=== PATIENT | female | born 1960 | race American Indian/Alaskan Native ===

== ENCOUNTER 2018-07-26 11:51 | Emergency (ER) | payer MEDICAID ==
[2018-07-26] MEDS ORDERED: ZOFRAN IV ONE (12:32)
[2018-07-26] MEDS ORDERED: SUBLIMAZE IV ONE (12:32)
--- NOTE | 2018-07-26 12:43 | Emergency Department Report ---
HPI - General Chief Complaint: Weakness Time Seen by Provider: 07/26/18 12:20 - HPI HPI: Room 6 The patient is a 57-year-old female presenting with chief complaint of "something is wrong with my stomach." The patient states she has had nausea and vomiting for years. The patient had an EGD performed 03/30/[address] Neves which revealed "severe erosive esophagitis, gastric antral erythema, gastric antral erosions and a hiatal hernia." GI recommended a repeat endoscopy in 8-12 weeks to check for healing of erosive esophagitis. The patient states she continues to have frequent nausea and vomiting with meals for the past 2 days she's felt weak with frequent nausea and vomiting. Patient states she's had constant mid back pain for the past 2 months. Patient denies dysuria or hematuria. When asked if she's had a fever at home the patient states she never checked her temperature. Location: Gastrointestinal system Duration: [See above] Quality: Weakness Severity: Moderate Modifying factors: [see above] Context: [see above] Mode of transportation: [not driving] ED Past Medical Hx - Past Medical History Previous Medical History?: Yes Hx GERD: Yes Hx Psychiatric Treatment: Yes (depression) Hx COPD: Yes Additional medical history: Hypercholesterolemia, hypothyroidism - Surgical History Additional Surgical History: Partial hysterectomy - Family History Family history: no significant - Social History Smoking Status: Current Every Day Smoker (2/3 pack per day) Substance Use Type: Cocaine (crack last use ~May 2018) - Medications Home Medications: Home Medications Medication Instructions Recorded Confirmed Last Taken Type Advair 250-50 Diskus 2 puff INHALATION PRN PRN 03/28/18 03/30/18 03/29/18 History AtorvaSTATin 20 mg PO DAILY 03/28/18 03/28/18 Unknown History Carbamazepine 400 mg PO DAILY 03/28/18 03/30/18 03/29/18 History FLUoxetine HCL 40 mg PO DAILY 03/28/18 03/30/18 03/29/18 History Gabapentin 300 mg PO TID 03/28/18 03/30/18 03/29/18 History Hydroxyzine HCl 50 mg PO TID 03/28/18 03/30/18 03/29/18 History Ibuprofen 800 mg PO PRN PRN 03/28/18 03/28/18 Unknown History Levothyroxine 50 mcg PO DAILY 03/28/18 03/28/18 Unknown History Lovastatin 20 mg PO DAILY 03/28/18 03/30/18 03/29/18 History Meclizine 25 mg PO TID 03/28/18 03/30/18 03/29/18 History Proventil Hfa 90 mcg INHALATION DAILY 03/28/18 03/30/18 03/29/18 History Ranitidine HCl 150 mg PO DAILY 03/28/18 03/30/18 03/29/18 History PROzac 40 mg PO DAILY 03/30/18 03/30/18 03/29/18 History SEROquel 400 mg PO DAILY 03/30/18 03/30/18 03/29/18 History TEGretol 400 mg PO DAILY 03/30/18 03/30/18 03/29/18 History Ibuprofen [Motrin] 600 mg PO Q8H PRN #20 tablet 05/12/18 Unknown Rx methOCARBAMOL [Robaxin TAB] 500 mg PO Q6H PRN #15 tablet 05/12/18 Unknown Rx HYDROcodone/APAP 5-325 [[place] 1 - 2 each PO Q6HR PRN #14 tablet 07/26/18 Unknown Rx 5/325] Metoclopramide HCl [Reglan TAB] 5 mg PO Q6H #30 tablet 07/26/18 Unknown Rx Pantoprazole [Protonix] 40 mg PO BID #30 tablet 07/26/18 Unknown Rx Promethazine [Phenergan] [address] Q6HR PRN #5 supp.rect 07/26/18 Unknown Rx ED Review of Systems ROS: Stated complaint: WEAKNESS,N/V Other details as noted in HPI Constitutional: fever (patient states she does not know) Eyes: denies: eye pain ENT: denies: throat pain Respiratory: no symptoms reported Cardiovascular: denies: chest pain Endocrine: no symptoms reported Gastrointestinal: nausea, vomiting. denies: abdominal pain Genitourinary: denies: dysuria Musculoskeletal: back pain Neurological: denies: headache Physical Exam - Physical Exam Vital Signs: Vital Signs 07/26/18 07/26/18 12:14 12:15 Temperature 99.3 F Pulse Rate 83 Blood Pressure 134/94 O2 Sat by Pulse 97 96 Oximetry Physical Exam: GENERAL: The patient is well-developed well-nourished female lying on stretcher not appearing to be in acute distress. [] HEENT: Normocephalic. Atraumatic. Extraocular motions are intact. Patient has moist mucous membranes. NECK: Supple. Trachea midline CHEST/LUNGS: Clear to auscultation. There is no respiratory distress noted. HEART/CARDIOVASCULAR: Regular. There is no tachycardia. There is no gallop rub or murmur. ABDOMEN: Abdomen is soft, nontender. Patient has normal bowel sounds. There is no abdominal distention. SKIN: There is no rash. There is no diaphoresis. NEURO: The patient is awake, alert, and oriented. The patient is cooperative. The patient has normal speech MUSCULOSKELETAL: There is no evidence of acute injury. ED Course Vital Signs 07/26/18 07/26/18 12:14 12:15 Temperature 99.3 F Pulse Rate 83 Blood Pressure 134/94 O2 Sat by Pulse 97 96 Oximetry - Consultations Consultation #1: 07/26/18 16:31 GI paged 07/26/18 16:[address] Porter Consultation #2: 07/26/18 16:45 Dr Neves paged 07/26/18 17:31 case d/w Dr Neves- Recdae giving PPI BID, reglan 5mg q6h and call office tomorrow ED Medical Decision Making - Lab Data Result diagrams: 07/26/18 12:44 07/26/18 12:44 Laboratory Tests 07/26/18 07/26/18 07/26/18 12:44 12:44 12:51 WBC 6.8 RBC 5.88 H Hgb 15.1 H Hct 46.1 H MCV 78 L MCH 26 L MCHC 33 RDW 15.1 Plt Count 300 Lymph % (Auto) 21.1 Reagan % (Auto) 4.4 Eos % (Auto) 0.9 Baso % (Auto) 1.3 Lymph # 1.4 Reagan # 0.3 Eos # 0.1 Baso # 0.1 Seg Neutrophils % 72.3 H Seg Neutrophils # 4.9 Sodium 138 Potassium 4.5 Chloride 100.2 Carbon Dioxide 27 Anion Gap 15 BUN 11 Creatinine 0.9 Estimated GFR > 60 BUN/Creatinine Ratio 12 Glucose 105 H Calcium 10.0 Total Bilirubin 0.30 AST 16 ALT 14 Alkaline Phosphatase 82 Total Creatine Kinase 80 CK-MB (CK-2) 1.3 CK-MB (CK-2) Rel Index 1.6 Troponin T < 0.010 Total Protein 7.9 Albumin 4.4 Albumin/Globulin Ratio 1.3 Amylase 273 H Lipase 40 TSH 1.110 Free T4 0.77 Urine Color Urine Turbidity Urine pH Ur Specific [place] Urine Protein Urine Glucose (UA) Urine Ketones Urine Blood Urine Nitrite Urine Bilirubin Urine Urobilinogen Ur Leukocyte Esterase Urine WBC (Auto) Urine RBC (Auto) U Epithel Cells (Auto) Hyaline Casts Urine Mucus 07/26/18 15:46 WBC RBC Hgb Hct MCV MCH MCHC RDW Plt Count Lymph % (Auto) Reagan % (Auto) Eos % (Auto) Baso % (Auto) Lymph # Reagan # Eos # Baso # Seg Neutrophils % Seg Neutrophils # Sodium Potassium Chloride Carbon Dioxide Anion Gap BUN Creatinine Estimated GFR BUN/Creatinine Ratio Glucose Calcium Total Bilirubin AST ALT Alkaline Phosphatase Total Creatine Kinase CK-MB (CK-2) CK-MB (CK-2) Rel Index Troponin T Total Protein Albumin Albumin/Globulin Ratio Amylase Lipase TSH Free T4 Urine Color Yellow Urine Turbidity Clear Urine pH 5.0 Ur Specific [place] 1.047 H Urine Protein <15 mg/dl Urine Glucose (UA) Neg Urine Ketones Neg Urine Blood Neg Urine Nitrite Neg Urine Bilirubin Neg Urine Urobilinogen < 2.0 Ur Leukocyte Esterase Neg Urine WBC (Auto) 1.0 Urine RBC (Auto) 1.0 U Epithel Cells (Auto) < 1.0 Hyaline Casts 1 Urine Mucus Few - EKG Data -: EKG Interpreted by Nc EKG shows normal: sinus rhythm Rate: normal - EKG Data When compared to previous EKG there are: previous EKG unavailable Interpretation: other (no ischemic changes seen) - Differential Diagnosis erosive esophagitis, pancreatitis, ACS, SBO, dehydration Critical care attestation.: If time is entered above; I have spent that time in minutes in the direct care of this critically ill patient, excluding procedure time. ED Disposition Clinical Impression: Nausea & vomiting, Erosive esophagitis Disposition: DC-01 TO HOME OR SELFCARE Is pt being admited?: No Does the pt Need Aspirin: No Condition: Stable Instructions: Acute Nausea and Vomiting (ED) Additional Instructions: Return to the emergency department immediately should you develop worsening symptoms, fever, inability to tolerate food or liquid or any other concerns. Prescriptions: HYDROcodone/APAP 5-325 [[place] 5/325] 1 - 2 each PO Q6HR PRN #14 tablet PRN Reason: Pain Metoclopramide HCl [Reglan TAB] 5 mg PO Q6H #30 tablet Pantoprazole [Protonix] 40 mg PO BID #30 tablet Promethazine [Phenergan] [address] Q6HR PRN #5 supp.rect PRN Reason: Vomiting Referrals: LUCY NEVES MD [Staff Physician] - 3-5 Days Time of Disposition: 17:31
[2018-07-26] MEDS ORDERED: NACL 0.9% 1000 ML 1,000 ML IV ONE (12:48)
[2018-07-26 13:04] LABS: Basophils # (Auto) 0.1 K/mm3 (0.0-0.1); Basophils % (Auto) 1.3 % (0.0-1.8); Eosinophils # (Auto) 0.1 K/mm3 (0.0-0.4); Eosinophils % (Auto) 0.9 % (0.0-4.3); Hematocrit 46.1 % (30.3-42.9); Hemoglobin 15.1 gm/dl (10.1-14.3); Lymphocytes # (Auto) 1.4 K/mm3 (1.2-5.4); Lymphocytes % (Auto) 21.1 % (13.4-35.0); Mean Corpuscular HGB Conc 33 % (30-34); Mean Corpuscular Volume 78 fl (79-97); Monocytes # (Auto) 0.3 K/mm3 (0.0-0.8); Monocytes % (Auto) 4.4 % (0.0-7.3); Platelet Count 300 K/mm3 (140-440); Red Blood Count 5.88 M/mm3 (3.65-5.03); Red Cell Distribution Width 15.1 % (13.2-15.2)
[2018-07-26 13:26] LABS: Creatine Kinase MB 1.3 ng/mL (0.0-4.0)
[2018-07-26 13:27] LABS: Alanine Aminotransferase 14 units/L (7-56); Albumin 4.4 g/dL (3.9-5); BUN/Creatinine Ratio 12; Blood Urea Nitrogen 11 mg/dL (7-17); Hemolysis Index 9
[2018-07-26 14:20] LABS: Free T4 (Free Thyroxine) 0.77 ng/dL (0.76-1.46)
--- NOTE | 2018-07-26 15:17 | Cat Scan Report ---
FINAL REPORT EXAM: CT ABDOMEN PELVIS W CON HISTORY: intractable nausea vomiting, weakness. Hx hiatal hernia w vomiting for years. Pt states she tried to have an MRI a few months ago for a spot on her liver but was unable to do the MRI. No follo w up since then. Also bilateral flank pain. TECHNIQUE: CT abdomen and pelvis performed. Images extend from diaphragm to pubic symphysis. IV co ntrast was administered. Axial images and coronal and sagittal reformatted images were obtained. PRIORS: None. FINDINGS: There is a 3.9 cm mass in the right hepatic lobe with enhancement pattern suggestive of hemangioma. 1 cm low-density lesion in the left lobe may also be a hemangioma although not definitively character ized. Other tiny low-density lesions are likely cysts. There is a moderate to large hiatal hernia. There is mild wall thickening of the stomach which may re flect gastritis. The visualized liver, spleen, pancreas, adrenal glands and kidneys demonstrate no significant abnorma lities. There is no abdominal aortic aneurysm. There is no evidence of intestinal obstruction. The appendix is normal. There is no free intraperitoneal air. The bladder is unremarkable. IMPRESSION: 3.9 cm right lobe liver lesion has appearance compatible with hemangioma. There may be an additional 1 cm hemangioma in the left hepatic lobe. Other tiny lesions are likely cy sts. Moderate to large hiatal hernia. There is diffuse mild gastric wall thickening which is concerning fo r gastritis.
[2018-07-26 16:00] LABS: Bilirubin,Urine NEG (Negative); Blood,Urine NEG (Negative); Color,Urine Yellow (Yellow); Hyaline Casts,Urine 1 /LPF; Mucus,Urine FEW /HPF; Protein,Urine <15 mg/dL mg/dL (Negative); Urobilinogen,Urine < 2.0 mg/dL (<2.0)
[2018-07-26 16:01] VITALS: BP 135/78
== END 2018-07-26 17:50 | disposition home or self-care (01) ==
LOC: ED 11:51
DX: K22.10 Ulcer of esophagus without bleeding (principal); R11.2 Nausea with vomiting, unspecified; K21.9 Gastro-esophageal reflux disease without esophagitis; F32.9 Major depressive disorder, single episode, unspecified; J44.9 Chronic obstructive pulmonary disease, unspecified; E03.9 Hypothyroidism, unspecified; F17.200 Nicotine dependence, unspecified, uncomplicated; F14.10 Cocaine abuse, uncomplicated
CPT/HCPCS: 36415; 74177; 80053; 81001; 82150; 82550; 82553; 83690; 84439; 84443; 84484; 85025; 93005; 93010; 96361; 96374; 96375; 99284; J2405; J3010; J7030; Q9967

== ENCOUNTER 2020-04-30 12:15 | Emergency (ER) | payer MEDICAID ==
[2020-04-30 13:36] LABS: Basophils # (Auto) 0.1 K/mm3 (0.0-0.1); Basophils % (Auto) 1.6 % (0.0-1.8); Eosinophils # (Auto) 0.1 K/mm3 (0.0-0.4); Eosinophils % (Auto) 1.9 % (0.0-4.3); Hematocrit 39.9 % (30.3-42.9); Hemoglobin 13.2 gm/dl (10.1-14.3); Lymphocytes # (Auto) 1.6 K/mm3 (1.2-5.4); Lymphocytes % (Auto) 41.7 % (13.4-35.0); Mean Corpuscular HGB Conc 33 % (30-34); Mean Corpuscular Volume 76 fl (79-97); Monocytes # (Auto) 0.2 K/mm3 (0.0-0.8); Monocytes % (Auto) 6.5 % (0.0-7.3); Platelet Count 210 K/mm3 (140-440); Red Blood Count 5.25 M/mm3 (3.65-5.03); Red Cell Distribution Width 18.9 % (13.2-15.2)
[2020-04-30 13:57] LABS: BUN/Creatinine Ratio 8; Blood Urea Nitrogen 6 mg/dL (7-17); Calcium 9.4 mg/dL (8.4-10.2); Hemolysis Index 3
[2020-04-30 16:00] LABS: Amphetamine Screen,Urine PRESUMPTIVE NEGATIVE; Benzodiazepines Screen,Urine PRESUMPTIVE NEGATIVE; Bilirubin,Urine NEG (Negative); Blood,Urine SM (Negative); Cannabinoid Screen,Urine PRESUMPTIVE NEGATIVE; Cocaine Screen,Urine PRESUMPTIVE POSITIVE; Color,Urine Yellow (Yellow); Hyaline Casts,Urine 1 /LPF; Methadone Screen,Urine PRESUMPTIVE NEGATIVE; Mucus,Urine 1+ /HPF; Opiate Screen,Urine PRESUMPTIVE NEGATIVE; Protein,Urine <15 mg/dL mg/dL (Negative); Urobilinogen,Urine < 2.0 mg/dL (<2.0)
--- NOTE | 2020-04-30 17:31 | Emergency Department Report ---
<CARMENJOHN - Last Filed: 04/30/20 17:26> ED Psych HPI - General Chief Complaint: Psych Stated Complaint: MH Time Seen by Provider: 04/30/20 16:57 Source: patient Mode of arrival: Ambulatory Limitations: No Limitations - History of Present Illness Initial Comments: Chief complaint: "Why are you asking me all of these questions? I am suicidal." HPI: Mrs. Pena is a 59-year-old female with history of depression, bipolar disorder, COPD, GERD, hypercholesterolemia, hypothyroidism and cocaine dependence who presents with suicidal ideation. Patient could not provide a plan to harm herself. However she informed triage nurse that she wants to run out in traffic and get hit by a car. She did not want to provide any history. She wanted to eat food provided to her. She admitted that she does not have lodging because "I smoked up all my check and the lady put me out." MD Complaint: suicidal ideation, feels depressed -: Gradual, week(s) (2 weeks) Associated Psychiatric Symptoms: depression, suicidal ideation History of same: Yes Quality: constant Improves With: none Worsens With: none Context: recent drug abuse, not taking psychiatric Associated Symptoms: denies other symptoms Treatments Prior to Arrival: none If Self Harm: has plan - Related Data Home Medications Medication Instructions Recorded Confirmed Last Taken Advair 250-50 Diskus 2 puff INHALATION PRN PRN 03/28/18 05/01/20 03/29/18 AtorvaSTATin 20 mg PO DAILY 03/28/18 05/01/20 Unknown Carbamazepine 400 mg PO DAILY 03/28/18 05/01/20 03/29/18 FLUoxetine HCL 40 mg PO DAILY 03/28/18 05/01/20 03/29/18 Gabapentin 300 mg PO TID 03/28/18 05/01/20 03/29/18 Hydroxyzine HCl 50 mg PO TID 03/28/18 05/01/20 03/29/18 Ibuprofen 800 mg PO PRN PRN 03/28/18 05/01/20 Unknown Levothyroxine 50 mcg PO DAILY 03/28/18 05/01/20 Unknown Lovastatin 20 mg PO DAILY 03/28/18 05/01/20 03/29/18 Meclizine 25 mg PO TID 03/28/18 05/01/20 03/29/18 Proventil Hfa 90 mcg INHALATION DAILY 03/28/18 05/01/20 03/29/18 Ranitidine HCl 150 mg PO DAILY 03/28/18 05/01/20 03/29/18 PROzac 40 mg PO DAILY 03/30/18 05/01/20 03/29/18 SEROquel 400 mg PO DAILY 03/30/18 05/01/20 03/29/18 TEGretol 400 mg PO DAILY 03/30/18 05/01/20 03/29/18 Previous Rx's Medication Instructions Recorded Last Taken Type Ibuprofen [Motrin] 600 mg PO Q8H PRN #20 tablet 05/12/18 Unknown Rx methOCARBAMOL [Robaxin TAB] 500 mg PO Q6H PRN #15 tablet 05/12/18 Unknown Rx HYDROcodone/APAP 5-325 [[place] 1 - 2 each PO Q6HR PRN #14 tablet 07/26/18 Unknown Rx 5/325] Metoclopramide HCl [Reglan TAB] 5 mg PO Q6H #30 tablet 07/26/18 Unknown Rx Pantoprazole [Protonix] 40 mg PO BID #30 tablet 07/26/18 Unknown Rx Promethazine [Phenergan] 25 mg [place] Q6HR PRN #5 supp.rect 07/26/18 Unknown Rx Allergies Allergy/AdvReac Type Severity Reaction Status Date / Time acetaminophen Allergy Intermediate Unknown Verified 04/30/20 12:55 codeine Allergy Intermediate Itching Verified 04/30/20 12:55 ED Review of Systems Comment: All other systems reviewed and negative Constitutional: denies: fever, malaise Respiratory: denies: cough, shortness of breath Cardiovascular: denies: chest pain Gastrointestinal: denies: abdominal pain, nausea Psychiatric: depression, suicidal thoughts ED Past Medical Hx - Past Medical History Previous Medical History?: Yes Hx GERD: Yes Hx Psychiatric Treatment: Yes (depression/ BIPOLAR) Hx COPD: Yes Additional medical history: Hypercholesterolemia, hypothyroidism - Surgical History Additional Surgical History: Partial hysterectomy - Social History Smoking Status: Current Every Day Smoker Substance Use Type: Cocaine, Other - Medications Home Medications: Home Medications Medication Instructions Recorded Confirmed Last Taken Type Advair 250-50 Diskus 2 puff INHALATION PRN PRN 03/28/18 05/01/20 03/29/18 History AtorvaSTATin 20 mg PO DAILY 03/28/18 05/01/20 Unknown History Carbamazepine 400 mg PO DAILY 03/28/18 05/01/20 03/29/18 History FLUoxetine HCL 40 mg PO DAILY 03/28/18 05/01/20 03/29/18 History Gabapentin 300 mg PO TID 03/28/18 05/01/20 03/29/18 History Hydroxyzine HCl 50 mg PO TID 03/28/18 05/01/20 03/29/18 History Ibuprofen 800 mg PO PRN PRN 03/28/18 05/01/20 Unknown History Levothyroxine 50 mcg PO DAILY 03/28/18 05/01/20 Unknown History Lovastatin 20 mg PO DAILY 03/28/18 05/01/20 03/29/18 History Meclizine 25 mg PO TID 03/28/18 05/01/20 03/29/18 History Proventil Hfa 90 mcg INHALATION DAILY 03/28/18 05/01/20 03/29/18 History Ranitidine HCl 150 mg PO DAILY 03/28/18 05/01/20 03/29/18 History PROzac 40 mg PO DAILY 03/30/18 05/01/20 03/29/18 History SEROquel 400 mg PO DAILY 03/30/18 05/01/20 03/29/18 History TEGretol 400 mg PO DAILY 03/30/18 05/01/20 03/29/18 History Ibuprofen [Motrin] 600 mg PO Q8H PRN #20 tablet 05/12/18 05/01/20 Unknown Rx methOCARBAMOL [Robaxin TAB] 500 mg PO Q6H PRN #15 tablet 05/12/18 05/01/20 Unk nown Rx HYDROcodone/APAP 5-325 [[place] 1 - 2 each PO Q6HR PRN #14 tablet 07/26/18 05/01/20 Unknown Rx 5/325] Metoclopramide HCl [Reglan TAB] 5 mg PO Q6H #30 tablet 07/26/18 05/01/20 Unknown Rx Pantoprazole [Protonix] 40 mg PO BID #30 tablet 07/26/18 05/01/20 Unknown Rx Promethazine [Phenergan] 25 mg [place] Q6HR PRN #5 supp.rect 07/26/18 05/01/20 Unknown Rx ED Physical Exam - General Limitations: No Limitations General appearance: alert, in no apparent distress - Head Head exam: Present: atraumatic, normocephalic - Eye Eye exam: Present: normal appearance - ENT ENT exam: Present: mucous membranes moist - Neck Neck exam: Present: normal inspection, full ROM - Respiratory Respiratory exam: Present: normal lung sounds bilaterally. Absent: respiratory distress, wheezes, rales, rhonchi - Cardiovascular Cardiovascular Exam: Present: regular rate, normal rhythm, normal heart sounds. Absent: systolic murmur, diastolic murmur, rubs, gallop - GI/Abdominal GI/Abdominal exam: Present: soft, normal bowel sounds. Absent: distended, tenderness, guarding, rebound - Extremities Exam Extremities exam: Present: normal inspection - Neurological Exam Neurological exam: Present: alert, oriented X3 - Psychiatric Psychiatric exam: Present: normal affect, agitated - Skin Skin exam: Present: warm, dry, intact, normal color. Absent: rash ED Medical Decision Making - Lab Data Result diagrams: 04/30/20 13:18 04/30/20 13:18 Laboratory Results - last 24 hr 04/30/20 04/30/20 04/30/20 13:18 13:18 13:18 WBC RBC Hgb Hct MCV MCH MCHC RDW Plt Count Lymph % (Auto) Jackson % (Auto) Eos % (Auto) Baso % (Auto) Lymph # (Auto) Jackson # (Auto) Eos # (Auto) Baso # (Auto) Seg Neutrophils % Seg Neutrophils # Sodium 144 Potassium 3.3 L Chloride 104.5 Carbon Dioxide 30 Anion Gap 13 BUN 6 L Creatinine 0.8 Estimated GFR > 60 BUN/Creatinine Ratio 8 Glucose 38 L* POC Glucose Calcium 9.4 Urine Color Urine Turbidity Urine pH Ur Specific Taylor Urine Protein Urine Glucose (UA) Urine Ketones Urine Blood Urine Nitrite Urine Bilirubin Urine Urobilinogen Ur Leukocyte Esterase Urine WBC (Auto) Urine RBC (Auto) U Epithel Cells (Auto) Hyaline Casts Urine Mucus Salicylates < 0.3 L Urine Opiates Screen Urine Methadone Screen Acetaminophen 5.0 L Ur Barbiturates Screen Ur Phencyclidine Scrn Ur Amphetamines Screen U Benzodiazepines Scrn Urine Cocaine Screen U Marijuana (THC) Screen Drugs of Abuse Note Plasma/Serum Alcohol 04/30/20 04/30/20 04/30/20 13:18 13:18 14:34 WBC 3.8 L RBC 5.25 H Hgb 13.2 Hct 39.9 MCV 76 L MCH 25 L MCHC 33 RDW 18.9 H Plt Count 210 Lymph % (Auto) 41.7 H Jackson % (Auto) 6.5 Eos % (Auto) 1.9 Baso % (Auto) 1.6 Lymph # (Auto) 1.6 Jackson # (Auto) 0.2 Eos # (Auto) 0.1 Baso # (Auto) 0.1 Seg Neutrophils % 48.3 Seg Neutrophils # 1.8 Sodium Potassium Chloride Carbon Dioxide Anion Gap BUN Creatinine Estimated GFR BUN/Creatinine Ratio Glucose POC Glucose 176 H Calcium Urine Color Urine Turbidity Urine pH Ur Specific Taylor Urine Protein Urine Glucose (UA) Urine Ketones Urine Blood Urine Nitrite Urine Bilirubin Urine Urobilinogen Ur Leukocyte Esterase Urine WBC (Auto) Urine RBC (Auto) U Epithel Cells (Auto) Hyaline Casts Urine Mucus Salicylates Urine Opiates Screen Urine Methadone Screen Acetaminophen Ur Barbiturates Screen Ur Phencyclidine Scrn Ur Amphetamines Screen U Benzodiazepines Scrn Urine Cocaine Screen U Marijuana (THC) Screen Drugs of Abuse Note Plasma/Serum Alcohol < 0.01 04/30/20 04/30/20 14:47 14:47 WBC RBC Hgb Hct MCV MCH MCHC RDW Plt Count Lymph % (Auto) Jackson % (Auto) Eos % (Auto) Baso % (Auto) Lymph # (Auto) Jackson # (Auto) Eos # (Auto) Baso # (Auto) Seg Neutrophils % Seg Neutrophils # Sodium Potassium Chloride Carbon Dioxide Anion Gap BUN Creatinine Estimated GFR BUN/Creatinine Ratio Glucose POC Glucose Calcium Urine Color Yellow Urine Turbidity Clear Urine pH 6.0 Ur Specific Taylor 1.017 Urine Protein <15 mg/dl Urine Glucose (UA) Neg Urine Ketones Neg Urine Blood Sm Urine Nitrite Neg Urine Bilirubin Neg Urine Urobilinogen < 2.0 Ur Leukocyte Esterase Neg Urine WBC (Auto) 2.0 Urine RBC (Auto) 1.0 U Epithel Cells (Auto) 2.0 Hyaline Casts 1 Urine Mucus 1+ Salicylates Urine Opiates Screen Presumptive negative Urine Methadone Screen Presumptive negative Acetaminophen Ur Barbiturates Screen Presumptive negative Ur Phencyclidine Scrn Presumptive negative Ur Amphetamines Screen Presumptive negative U Benzodiazepines Scrn Presumptive negative Urine Cocaine Screen Presumptive positive U Marijuana (THC) Screen Presumptive negative Drugs of Abuse Note Disclamer Plasma/Serum Alcohol - Medical Decision Making Mrs. Pena is a 65-year-old female with history of bipolar disorder depression cocaine dependence who presents with suicidality. She informed triage nurse that she had plain to run into traffic and get hit by car. Homelessness is also a concern. Due to cocaine use she does not have any funds to afford housing. Patient is more concerned with eating her meal than providing history. I am concerned for secondary gain. She does not appear depressed in demeanor. I will await mental health recommendations by psychiatry team. Also ordered case management consult. Patient is medically clear for psychiatricv care. I have reviewed labs obtained. CBC chemistry serum toxicology urinalysis urine tox screen all within normal limits with exception of mild hypokalemia and UDS screen positive for cocaine I have ordered p.o. potassium supplementation. ED Disposition Clinical Impression: Cocaine dependence, Bipolar disorder Disposition: DC/TX-65 PSY HOSP/PSY UNIT Condition: Good <FLORIDALMABROOKE RUFF - Last Filed: 05/01/20 20:56> ED Review of Systems ROS: Stated complaint: MH Other details as noted in HPI ED Course Vital Signs 04/30/20 04/30/20 04/30/20 12:57 12:59 17:02 Temperature 98.5 F 98.2 F Pulse Rate 63 76 Respiratory 20 18 Rate Blood Pressure 136/83 Blood Pressure 154/53 [Left] O2 Sat by Pulse 98 98 Oximetry 04/30/20 05/01/20 19:17 02:20 Temperature 98.8 F 97.9 F Pulse Rate 75 88 Respiratory 18 18 Rate Blood Pressure 107/59 117/85 Blood Pressure [Left] O2 Sat by Pulse 97 95 Oximetry - Reevaluation(s) Reevaluation #1: 05/01/20 20:56 Patient was medically cleared yesterday. She is accepted to the fifth floor psychiatric unit at this time ED Medical Decision Making - Lab Data Result diagrams: 04/30/20 13:18 04/30/20 13:18 Critical care attestation.: If time is entered above; I have spent that time in minutes in the direct care of this critically ill patient, excluding procedure time. ED Disposition Is pt being admited?: No Does the pt Need Aspirin: No
[2020-05-01] MEDS ORDERED: POTASSIUM CHLORIDE ER 20 MEQ TAB PO ONE ×2 (00:16→00:17)
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
[2020-05-01] MEDS ORDERED: FLUoxetine 10 MG TAB PO SCH (12:00)
[2020-05-01] MEDS: CARBAMAZEPINE 200 MG/10 ML PO SCH ×2 (12:44→21:55)
[2020-05-01] MEDS ORDERED: diphenhydrAMINE 25 MG CAP PO ONE ×2 (17:14→17:17)
[2020-05-01 21:03] VITALS: BP 124/80
[2020-05-01] MEDS ORDERED: QUEtiapine 200 MG TAB PO SCH (22:00)
== END 2020-05-01 22:08 ==
LOC: ED 12:15
DX: F31.9 Bipolar disorder, unspecified (principal); F14.20 Cocaine dependence, uncomplicated; K21.9 Gastro-esophageal reflux disease without esophagitis; J44.9 Chronic obstructive pulmonary disease, unspecified; F17.200 Nicotine dependence, unspecified, uncomplicated; Z98.890 Other specified postprocedural states; Z79.1 Long term (current) use of non-steroidal anti-inflammatories (NSAID); Z79.899 Other long term (current) drug therapy; Z88.8 Allergy status to other drugs, medicaments and biological substances
CPT/HCPCS: 36415; 80048; 80307; 81001; 82962; 85025; 99284; U0003; 80320; G0480

== ENCOUNTER 2020-05-01 16:20 | Inpatient (IN) | payer MEDICAID ==
[2020-05-01] MEDS ORDERED: traZODone 50 MG TAB PO SCH (22:00)
[2020-05-01] MEDS: OMEGA-3 FATTY ACIDS/FISH OIL 1 GRAM CAP PO SCH (23:54)
[2020-05-01] MEDS: ZOLPIDEM 5 MG TAB PO SCH (23:54)
[2020-05-01] MEDS: QUEtiapine 200 MG TAB PO SCH (23:55)
[2020-05-01] MEDS: carBAMazepine 200 MG TAB PO SCH (23:55)
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
[2020-05-02] MEDS: carBAMazepine 200 MG TAB PO SCH ×2 (12:04→21:01)
[2020-05-02] MEDS: OMEGA-3 FATTY ACIDS/FISH OIL 1 GRAM CAP PO SCH ×2 (12:04→21:01)
--- NOTE | 2020-05-02 12:28 | Consultation ---
History of Present Illness - Reason for Consult Consult date: 05/02/20 medical Mx - History of Present Illness This is a 59-year-old female with history of depression, bipolar disorder, COPD, GERD, hypercholesterolemia, hypothyroidism and cocaine dependence who presents with suicidal ideation. Patient could not provide a plan to harm herself. However she informed triage nurse that she wants to run out in traffic and get hit by a car. Patient is admitted today inpatient psych unit for further stabilization. Hospitalist service has been consulted to further evaluate the patient for medical management. Past medical History: h/o depression, bipolar disorder, COPD, GERD, hypercholesterolemia, hypothyroidism and cocaine dependence Past surgical History: s/p partial hysterectomy Social History: Lives with family, + tobacco abuse, +cocaine abuse Family History: Significant for hypertension, diabetes mellitus Review of System: Constitutional: no fever, no chills, no weight loss Ears, eyes, nose, mouth and throat: no nasal congestion, no nasal discharge, no sinus pressure, no vision change, no red eye. Neck: No neck pain or rigidity. Cardiovascular: No chest pain, no orthopnea, no palpitations, no leg swelling Respiratory: No shortness of breath, no cough, no congestion, no wheezing Gastrointestinal: no abdominal pain, no nausea, no vomiting Genitourinary : no dysuria, no hematuria Musculoskeletal: no joint swelling or muscle ache Integumentary: no rash, no pruritis Neurological: no parathesias, no numbness, no tingling Endocrine: no cold or heat intolerance, no polyuria or polydipsia Hematologic/Lymphatic: no easy bruising, no easy bleeding, no gland swelling Allergic/Immunologic: no urticaria, no angioedema. Physical exam: GENERAL: well-developed and well-nourished AAF lying on bed appeared to be in no discomfort. HEENT: Normocephalic. Atraumatic. No conjunctival congestion or icterus. Patient has moist mucous membranes. NECK: Supple. Trachea midline. CHEST/LUNGS: Clear to auscultated bilaterally, breathing nonlabored. No wheezes crackles or rhonchi. HEART/CARDIOVASCULAR: Regular in rate and rhythm. S1 and S2 positive. ABDOMEN: Abdomen is soft, nontender. Patient has normal bowel sounds. SKIN: There is no rash. Warm and dry. NEURO: No focal motor deficit. Follows command. MUSCULOSKELETAL: No joint effusion or tenderness. EXTRIMITY: No edema, no cyanosis or clubbing. PSYCH: Cooperative. Assessment and plan: Bipolar disorder with depression Suicidal ideation -Management per primary Other medical issues: COPD Hyperlipidemia Hypothyroidism GERD -Resume home meds Cocaine abuse, counseled for cessation Medications and Allergies Allergies Allergy/AdvReac Type Severity Reaction Status Date / Time acetaminophen Allergy Intermediate Unknown Verified 04/30/20 12:55 codeine Allergy Intermediate Itching Verified 04/30/20 12:55 Home Medications Medication Instructions Recorded Confirmed Last Taken Type AtorvaSTATin 20 mg PO DAILY 03/28/18 05/02/20 Unknown History Carbamazepine 200 mg PO DAILY 03/28/18 05/02/20 03/29/18 History Hydroxyzine HCl 50 mg PO TID 03/28/18 05/02/20 03/29/18 History Levothyroxine 50 mcg PO DAILY 03/28/18 05/02/20 Unknown History PROzac 40 mg PO DAILY 03/30/18 05/02/20 03/29/18 History SEROquel 400 mg PO HS 03/30/18 05/02/20 03/29/18 History Ibuprofen [Motrin] 600 mg PO Q8H PRN #20 tablet 05/12/18 05/02/20 Unknown Rx Active Meds: Active Medications Carbamazepine (Tegretol) 200 mg PO BID [facility] Last Admin: 05/02/20 12:04 Dose: 200 mg Documented by: Fish Oil (Fish Oil) 2,000 mg PO BID [facility] Last Admin: 05/02/20 12:04 Dose: 2,000 mg Documented by: Hydroxyzine Pamoate (Vistaril) 50 mg PO Q6H PRN PRN Reason: Anxiety Quetiapine Fumarate (Seroquel) 200 mg PO QHS [facility] Last Admin: 05/01/20 23:55 Dose: 200 mg Documented by: Zolpidem Tartrate (Ambien) 2.5 mg PO QHS [facility] Stop: 05/02/20 22:01 Last Admin: 05/01/20 23:54 Dose: 2.5 mg Documented by: Exam - Constitutional Vitals: Temp Pulse Resp BP Pulse Ox 98.7 F 86 18 129/78 97 05/02/20 09:00 05/02/20 09:00 05/02/20 09:00 05/02/20 09:00 05/02/20 09:00 Results - Labs Labs: Abnormal lab results 05/02/20 Range/Units 05:29 TSH 0.229 L (0.270-4.200) mlU/mL
[2020-05-02 16:14] LABS: Chol/HDL Ratio 2.52 %
[2020-05-02] MEDS: hydrOXYzine HCL 25 MG TAB PO SCH (20:53)
[2020-05-02] MEDS: PANTOPRAZOLE 20 MG TAB PO SCH (20:53)
[2020-05-02] MEDS: ZOLPIDEM 5 MG TAB PO SCH (21:00)
[2020-05-02] MEDS: QUEtiapine 200 MG TAB PO SCH (21:01)
[2020-05-02] MEDS: GABAPENTIN 300 MG CAP PO SCH (21:01)
[2020-05-03] MEDS: LEVOTHYROXINE 50 MCG TAB PO SCH (06:31)
[2020-05-03] MEDS: GABAPENTIN 300 MG CAP PO SCH ×3 (06:31→21:05)
[2020-05-03] MEDS: PANTOPRAZOLE 20 MG TAB PO SCH (06:31)
--- NOTE | 2020-05-03 07:35 | Progress Note ---
Subjective Date of service: 05/03/20 Principal diagnosis: Bipolar 1 disorder, depressed Subjective Comment: Psych Nurse: Last evening the patient was quiet. She interacted minimally with her peers. She was angry that she didn't have some of her medications. PA was notified and ordered meds. Patient was content afterwards. She was pleasant. She denies si/hi/ah/vh. She was medication compliant. Will continue to monitor patient for safety. Psych Progress Patient seen this AM, reports she is doing so much better today compared to yesterday, also reports increased appetite and requested for a double portion meal if possible, she denies acute suicidal thoughts, or desire to do cocaine at the moment. Patient denies AVH. Patient does complains of restless night due to need to eat and constant sensation of hunger. Reason to continue inpatient psychiatric hospitalization: REVIEW OF SYSTEMS Constitutional: Negative for weight loss ENT: Negative for stridor Respiratory: Negative for cough or hemoptysis All other systems reviewed and are negative MENTAL STATUS EXAMINATION General Appearance and Behavior: Age appropriate, poor hygiene, wearing appropriate clothes, lying in bed, good eye contact, cooperative polite with questioning. Cooperation: Participating/engaged Psychomotor Behavior: unremarkable and within normal limits Mood: "much better" Affect and affective range: congruent with mood Thought Process: Fluent/Logical, Thought Content:llogical, Speech: Normal volume, Regular rate and rhythm, Intellectual Functioning: Average Suicidal Ideation: denies Suicidal Homicidal Ideation: Denies HI Impulse Control: uimpaired Insight and Judgment: improved insight Memory: Normal, Attention: Normal, Orientation: Alert, oriented Assessment and Plan - Psychiatric problem (1) Bipolar 1 disorder, depressed Current Visit: Yes Status: Acute (2) Cocaine use disorder Current Visit: Yes Status: Acute Treatment Plan Patients home medications restarted which includes Seroquel, Tegretol, and Added AMbien for sleep due to chronic cocaine use. Patient admitted for inpatient psychiatric evaluation, medication adjustment and close monitoring The patient's behavior, mood, sleep and appetite will be closely monitored. Patient enrolled in individual and group therapeutic sessions and encouraged to attend. Patient provided with a safe and structured environment. Patient's physical health needs will be addressed by the Hospitalist. Hospitalist Consulted Labs including CBC, CMP, Lipid profile and Hemoglobin A1C levels ordered for baseline reference Social Assessment will be completed and the Claim Specialist will work with patient and family to ensure a suitable and safe disposition Medication adjustment will be made as clinically indicated Usual Wellness Mandaeism/Preservation: - Start Trazodone 50 mg po QHS & 50 mg po QHS PRN between 10 PM & 2 AM for insomnia - Start Melatonin 5 mg po QHS to promote circadian rhythm - Start [place]-3 for brain health, reduce impulsivity, and as adjunctive t reatment for mood disorder, continue upon discharge given overall benefits. - Start B1 prophylaxis with 200 mg po for 5 days The patient agreed on the treatment plan, understood the risk, benefit, a lternative treatment, potential consequence of no treatment, and gave informed consent. Initial Certification Inpatient psych services: I certify that the inpatient psychiatric services are required for treatment that could reasonably be expected to improve the patient's condition. Estimated days: 7 Post hospital care: primary care provider, psychiatric provider Assessment and Plan - Patient Problems (1) Bipolar 1 disorder, depressed Current Visit: No Status: Acute (2) Cocaine use disorder Current Visit: No Status: Acute Medications and Allergies Allergies Allergy/AdvReac Type Severity Reaction Status Date / Time acetaminophen Allergy Intermediate Unknown Verified 04/30/20 12:55 codeine Allergy Intermediate Itching Verified 04/30/20 12:55 Home Medications Medication Instructions Recorded Confirmed Last Taken Type AtorvaSTATin 20 mg PO DAILY 03/28/18 05/02/20 Unknown History Carbamazepine 200 mg PO DAILY 03/28/18 05/02/20 03/29/18 History Hydroxyzine HCl 50 mg PO TID 03/28/18 05/02/20 03/29/18 History Levothyroxine 50 mcg PO DAILY 03/28/18 05/02/20 Unknown History PROzac 40 mg PO DAILY 03/30/18 05/02/20 03/29/18 History SEROquel 400 mg PO HS 03/30/18 05/02/20 03/29/18 History Ibuprofen [Motrin] 600 mg PO Q8H PRN #20 tablet 05/12/18 05/02/20 Unknown Rx Active Meds: Active Medications Atorvastatin Calcium (Lipitor) 20 mg PO DAILY [facility] Carbamazepine (Tegretol) 200 mg PO BID [facility] Last Admin: 05/02/20 21:01 Dose: 200 mg Documented by: Fish Oil (Fish Oil) 2,000 mg PO BID FIDELINA Last Admin: 05/02/20 21:01 Dose: 2,000 mg Documented by: Gabapentin (Gabapentin) 300 mg PO Q8HR [facility] Last Admin: 05/03/20 06:31 Dose: 300 mg Documented by: Hydroxyzine HCl (Atarax) 50 mg PO TID [facility] Last Admin: 05/02/20 20:53 Dose: 50 mg Documented by: Hydroxyzine Pamoate (Vistaril) 50 mg PO Q6H PRN PRN Reason: Anxiety Last Admin: 05/02/20 13:45 Dose: 50 mg Documented by: Levothyroxine Sodium (Synthroid) 50 mcg PO DAILY@0600 [facility] Last Admin: 05/03/20 06:31 Dose: 50 mcg Documented by: Pantoprazole Sodium (Protonix) 20 mg PO QDAC [facility] Last Admin: 05/03/20 06:31 Dose: 20 mg Documented by: Quetiapine Fumarate (Seroquel) 200 mg PO QHS [facility] Last Admin: 05/02/20 21:01 Dose: 200 mg Documented by: Results - Results Labs/Vitals: Laboratory Last Values POC Glucose 99 (70-105) 05/02/20 00:29 Hemoglobin A1c 6.1 % (4-6) H 05/02/20 05:29 Triglycerides 85 mg/dL (2-149) 05/02/20 05:29 Cholesterol 164 mg/dL (50-199) 05/02/20 05:29 LDL Cholesterol Direct 92 mg/dL (50-130) 05/02/20 05:29 HDL Cholesterol 65 mg/dL (40-59) H 05/02/20 05:29 Cholesterol/HDL Ratio 2.52 % 05/02/20 05:29 TSH 0.229 mlU/mL (0.270-4.200) L 05/02/20 05:29 Last Vital Signs Temp 99.3 F 05/02/20 20:02 Pulse 90 05/02/20 20:02 Resp 20 05/02/20 20:02 BP 136/83 05/02/20 20:02 Pulse Ox 98 05/02/20 20:02
[2020-05-03] MEDS: hydrOXYzine HCL 25 MG TAB PO SCH ×3 (09:03→21:05)
[2020-05-03] MEDS: carBAMazepine 200 MG TAB PO SCH ×2 (09:03→21:05)
[2020-05-03] MEDS: OMEGA-3 FATTY ACIDS/FISH OIL 1 GRAM CAP PO SCH ×2 (09:03→21:05)
[2020-05-03] MEDS: QUEtiapine 200 MG TAB PO SCH (21:05)
[2020-05-04] MEDS: LEVOTHYROXINE 50 MCG TAB PO SCH (05:59)
[2020-05-04] MEDS: GABAPENTIN 300 MG CAP PO SCH ×3 (05:59→21:19)
--- NOTE | 2020-05-04 07:33 | Progress Note ---
Subjective Date of service: 05/04/20 Principal diagnosis: Bipolar 1 disorder, depressed Subjective Comment: Psych Nurse: pt has been compliant with all medication, no behavioral issues, always hungry, snacks given x2 during the night, slept approximately 7hrs plus, no distress noted, will continue to monitor for safety. Psych Progress Patient report doing much better today again, denies having any sleep issues reports she met with the director of social services yesterday and he had a discussion about potential places that she could go to which made her feel better. He denies any suicidal ideation and also denies having any depressed mood. Reason to continue inpatient psychiatric hospitalization: Safety discharge planning for placement. REVIEW OF SYSTEMS Constitutional: Negative for weight loss ENT: Negative for stridor Respiratory: Negative for cough or hemoptysis All other systems reviewed and are negative MENTAL STATUS EXAMINATION General Appearance and Behavior: Age appropriate, poor hygiene, wearing appropriate clothes, lying in bed, good eye contact, cooperative polite with questioning. Cooperation: Participating/engaged Psychomotor Behavior: unremarkable and within normal limits Mood: "much better" Affect and affective range: congruent with mood Thought Process: Fluent/Logical, Thought Content:llogical, Speech: Normal volume, Regular rate and rhythm, Intellectual Functioning: Average Suicidal Ideation: denies Suicidal Homicidal Ideation: Denies HI Impulse Control: uimpaired Insight and Judgment: improved insight Memory: Normal, Attention: Normal, Orientation: Alert, oriented Assessment and Plan - Psychiatric problem (1) Bipolar 1 disorder, depressed Current Visit: Yes Status: Acute (2) Cocaine use disorder Current Visit: Yes Status: Acute Treatment Plan Patients home medications restarted which includes Seroquel, Tegretol, and Added AMbien for sleep due to chronic cocaine use. Patient admitted for inpatient psychiatric evaluation, medication adjustment and close monitoring The patient's behavior, mood, sleep and appetite will be closely monitored. Patient enrolled in individual and group therapeutic sessions and encouraged to attend. Patient provided with a safe and structured environment. Patient's physical health needs will be addressed by the Hospitalist. Hospitalist Consulted Labs including CBC, CMP, Lipid profile and Hemoglobin A1C levels ordered for baseline reference Social Assessment will be completed and the Supervisor Lime will work with patient and family to ensure a suitable and safe disposition Medication adjustment will be made as clinically indicated Usual Wellness Confucianism/Preservation: - Start Trazodone 50 mg po QHS & 50 mg po QHS PRN between 10 PM & 2 AM for insomnia - Start Melatonin 5 mg po QHS to promote circadian rhythm - Start [place]-3 for brain health, reduce impulsivity, and as adjunctive treatment for mood disorder, continue upon discharge given overall benefits. - Start B1 prophylaxis with 200 mg po for 5 days The patient agreed on the treatment plan, understood the risk, benefit, alternative treatment, potential consequence of no treatment, and gave informed consent. Initial Certification Inpatient psych services: I certify that the inpatient psychiatric services are required for treatment that could reasonably be expected to improve the patient's condition. Estimated days: 1 Post hospital care: primary care provider, psychiatric provider Assessment and Plan - Patient Problems (1) Bipolar 1 disorder, depressed Current Visit: No Status: Acute (2) Cocaine use disorder Current Visit: No Status: Acute Medications and Allergies Allergies Allergy/AdvReac Type Severity Reaction Status Date / Time acetaminophen Allergy Intermediate Unknown Verified 04/30/20 12:55 codeine Allergy Intermediate Itching Verified 04/30/20 12:55 Home Medications Medication Instructions Recorded Confirmed Last Taken Type AtorvaSTATin 20 mg PO DAILY 03/28/18 05/02/20 Unknown History Carbamazepine 200 mg PO DAILY 03/28/18 05/02/20 03/29/18 History Hydroxyzine HCl 50 mg PO TID 03/28/18 05/02/20 03/29/18 History Levothyroxine 50 mcg PO DAILY 03/28/18 05/02/20 Unknown History PROzac 40 mg PO DAILY 03/30/18 05/02/20 03/29/18 History SEROquel 400 mg PO HS 03/30/18 05/02/20 03/29/18 History Ibuprofen [Motrin] 600 mg PO Q8H PRN #20 tablet 05/12/18 05/02/20 Unknown Rx Active Meds: Active Medications Atorvastatin Calcium (Lipitor) 20 mg PO DAILY [facility] Last Admin: 05/03/20 09:03 Dose: 20 mg Documented by: Carbamazepine (Tegretol) 200 mg PO BID [facility] Last Admin: 05/03/20 21:05 Dose: 200 mg Documented by: Fish Oil (Fish Oil) 2,000 mg PO BID [facility] Last Admin: 05/03/20 21:05 Dose: 2,000 mg Documented by: Gabapentin (Gabapentin) 300 mg PO Q8HR [facility] Last Admin: 05/04/20 05:59 Dose: 300 mg Documented by: Hydroxyzine HCl (Atarax) 50 mg PO TID [facility] Last Admin: 05/03/20 21:05 Dose: 50 mg Documented by: Hydroxyzine Pamoate (Vistaril) 50 mg PO Q6H PRN PRN Reason: Anxiety Last Admin: 05/02/20 13:45 Dose: 50 mg Documented by: Levothyroxine Sodium (Synthroid) 50 mcg PO DAILY@0600 [facility] Last Admin: 05/04/20 05:59 Dose: 50 mcg Documented by: Pantoprazole Sodium (Protonix) 20 mg PO QDAC [facility] Last Admin: 05/03/20 06:31 Dose: 20 mg Documented by: Quetiapine Fumarate (Seroquel) 200 mg PO QHS [facility] Last Admin: 05/03/20 21:05 Dose: 200 mg Documented by: Results - Results Labs/Vitals: Laboratory Last Values POC Glucose 99 (70-105) 05/02/20 00:29 Hemoglobin A1c 6.1 % (4-6) H 05/02/20 05:29 Triglycerides 85 mg/dL (2-149) 05/02/20 05:29 Cholesterol 164 mg/dL (50-199) 05/02/20 05:29 LDL Cholesterol Direct 92 mg/dL (50-130) 05/02/20 05:29 HDL Cholesterol 65 mg/dL (40-59) H 05/02/20 05:29 Cholesterol/HDL Ratio 2.52 % 05/02/20 05:29 TSH 0.229 mlU/mL (0.270-4.200) L 05/02/20 05:29 Last Vital Signs Temp 98.6 F 05/03/20 20:00 Pulse 91 H 05/03/20 20:00 Resp 20 05/03/20 20:00 BP 143/92 05/03/20 20:00 Pulse Ox 96 05/03/20 20:00
[2020-05-04] MEDS: PANTOPRAZOLE 20 MG TAB PO SCH (08:58)
[2020-05-04] MEDS: OMEGA-3 FATTY ACIDS/FISH OIL 1 GRAM CAP PO SCH ×2 (09:08→21:18)
[2020-05-04] MEDS: carBAMazepine 200 MG TAB PO SCH ×2 (09:09→21:19)
[2020-05-04] MEDS: hydrOXYzine HCL 25 MG TAB PO SCH (09:11)
[2020-05-04] MEDS: diphenhydrAMINE 25 MG CAP PO PRN ×2 (09:14→21:18)
[2020-05-04] MEDS: FLUoxetine 20 MG CAP PO SCH (09:33)
[2020-05-04] MEDS ORDERED: IBUPROFEN 800 MG TAB PO PRN (12:19)
--- NOTE | 2020-05-04 13:44 | Cat Scan Report ---
CT CERVICAL SPINE: 05/04/2020 INDICATION / CLINICAL INFORMATION: pain s/p fall. COMPARISON: None available. FINDINGS: CT images of the cervical spine were obtained. Images are evaluated in the axial, coronal, and sagitt al planes. There is no evidence of acute abnormality. Slight reversal of cervical lordosis is centered at C5 wi th the patient positioned for this exam. Some minimal degenerative osteophyte formation is present at C5-6 and C6-7 levels. There is no eviden ce of osseous canal or foraminal narrowing. 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 . CRANIOCERVICAL JUNCTION: Unremarkable. PARASPINAL STRUCTURES: Unremarkable IMPRESSION: No acute abnormality. All CT scans at this location are performed using dose reduction to ALARA by means of automated expos ure control. Signer Name: Ronal Pardo MD Signed: 05/04/2020 1:40 PM Workstation Name: [id number]
--- NOTE | 2020-05-04 13:46 | Cat Scan Report ---
CT THORACIC SPINE: 05/04/2020 INDICATION / CLINICAL INFORMATION: pain s/p fall. COMPARISON: None available. FINDINGS: CT images of the thoracic spine were obtained. Images are evaluated in the axial, coronal, and sagitt al planes. Is no evidence of acute abnormality. Right convex scoliosis of the thoracic spine is present. Vertebral body height and alignment is normal. There is no evidence of canal narrowing or foraminal narrowing. PARASPINAL STRUCTURES: Unremarkable A very large hiatal hernia is present, with a significant portion of the stomach in the thorax. This has been previously imaged by CT. IMPRESSION: No evidence of acute abnormality. All CT scans at this location are performed using dose reduction to ALARA by means of automated expos ure control. Signer Name: Ronal Pardo MD Signed: 05/04/2020 1:42 PM Workstation Name: [id number]
[2020-05-04] MEDS: QUEtiapine 200 MG TAB PO SCH (21:19)
[2020-05-05] MEDS: GABAPENTIN 300 MG CAP PO SCH (06:12)
[2020-05-05] MEDS: LEVOTHYROXINE 50 MCG TAB PO SCH (06:12)
[2020-05-05] MEDS: PANTOPRAZOLE 20 MG TAB PO SCH (07:02)
[2020-05-05 08:01] VITALS: BP 150/84
--- NOTE | 2020-05-05 09:13 | Discharge Summary ---
Providers - Providers Date of Admission: 05/01/20 22:46 Date of discharge: 05/05/20 Attending physician: PELON RIBEIRO MD 05/01/20 17:22 Consult to Physician [CONS] Routine Comment: Consulting Provider: FLOR ARMIJO Physician Instructions: Reason For Exam: Medical Management Primary care physician: [facility] [employer] Hospitalization Reason for admission: SI Admitting Diagnosis: F31.9 - BIPOLAR DISORDER, UNSPECIFIED Condition: Stable Hospital course: The patient was provided inpatient psychiatric treatment with safe and supportive care, medication adjustment, adverse effect monitoring, medical evaluations, medical treatments, assessment and psycho-education. The patient's mood, cognition, behavior, moral support are improved and stabilized. St the time of discharge, the patient had no endangering behavior and no debilitating adverse effects. The patient agreed on potential consequences of no treatment and gave informed consent. Disposition: - TO HOME OR SELFCARE Time spent for discharge: 38 Allergies/Adverse Reactions: Allergies acetaminophen Allergy (Intermediate, Verified 04/30/20 12:55) Unknown codeine Allergy (Intermediate, Verified 04/30/20 12:55) Itching Vital Signs: Last Vital Signs Temp 97.5 F L 05/05/20 07:09 Pulse 72 05/05/20 07:09 Resp 18 05/05/20 07:09 BP 150/84 05/05/20 07:09 Pulse Ox 99 05/05/20 07:09 Last Lab: Laboratory Last Values POC Glucose 99 (70-105) 05/02/20 00:29 Hemoglobin A1c 6.1 % (4-6) H 05/02/20 05:29 Triglycerides 85 mg/dL (2-149) 05/02/20 05:29 Cholesterol 164 mg/dL (50-199) 05/02/20 05:29 LDL Cholesterol Direct 92 mg/dL (50-130) 05/02/20 05:29 HDL Cholesterol 65 mg/dL (40-59) H 05/02/20 05:29 Cholesterol/HDL Ratio 2.52 % 05/02/20 05:29 TSH 0.229 mlU/mL (0.270-4.200) L 05/02/20 05:29 Core Measure Documentation - Palliative Care Palliative Care/ Comfort Measures: Not Applicable - Core Measures Any of the following diagnoses?: none Exam - Constitutional Vitals: Temp Pulse Resp BP Pulse Ox 97.5 F L 72 18 150/84 99 05/05/20 07:09 05/05/20 07:09 05/05/20 07:09 05/05/20 07:09 05/05/20 07:09 General appearance: Present: no acute distress - EENT Eyes: Present: PERRL, EOM intact ENT: hearing intact, clear oral mucosa - Neck Neck: Present: normal ROM - Respiratory Respiratory effort: normal Plan Activity: advance as tolerated Weight Bearing Status: Weight Bear as Tolerated Care Plan Goals: Maintain good and stable mental health Plan of Treatment: The patient should be compliant with medications, not to use drugs, and not to drink alcohol. The patient understands that if suicidal ideas, homicidal ideas or any endangering feeling arise, the patient should seek assistance including, but not limited to crisis hotline, and emergency room. Health Concerns: Cocaine use Assessment: Bipolar Disorder Follow up with: PRIMARY CARE, [Primary Care Provider] - 7 Days Prescriptions: QUEtiapine [SEROquel] 200 mg PO QHS #30 tablet [place]-3 Fatty Acids/Fish Oil [Fish Oil] 2,000 mg PO BID #120 capsule Gabapentin 300 mg PO Q8HR #90 capsule Pantoprazole [Protonix TAB] 20 mg PO QDAC #30 tablet.
[2020-05-05] MEDS: OMEGA-3 FATTY ACIDS/FISH OIL 1 GRAM CAP PO SCH (09:50)
[2020-05-05] MEDS: FLUoxetine 20 MG CAP PO SCH (09:50)
[2020-05-05] MEDS: carBAMazepine 200 MG TAB PO SCH (09:51)
[2020-05-05] MEDS: diphenhydrAMINE 25 MG CAP PO PRN (10:07)
== END 2020-05-05 12:00 | disposition home or self-care (01) | DRG 885 ==
LOC: UNDOADMIN 16:20 → 3A 16:20 → 5A 22:46
PROVIDERS: ADMIT Psychiatry & Neurology Psychiatry; ATTEND Psychiatry & Neurology Psychiatry
DX: F31.9 Bipolar disorder, unspecified (principal); J44.9 Chronic obstructive pulmonary disease, unspecified; K21.9 Gastro-esophageal reflux disease without esophagitis; E03.9 Hypothyroidism, unspecified; E78.00 Pure hypercholesterolemia, unspecified; Z82.49 Family history of ischemic heart disease and other diseases of the circulatory system; Z83.3 Family history of diabetes mellitus; Z90.711 Acquired absence of uterus with remaining cervical stump; F14.29 Cocaine dependence with unspecified cocaine-induced disorder
CPT/HCPCS: 36415; 72125; 72128; 80048; 80061; 80307; 80320; 81001; 82962; 83036; 84443; 85025; G0378; A9270-GY; G0480; Q0177; U0003

== ENCOUNTER 2022-03-15 15:22 | Emergency (ER) | payer MEDICAID ==
[2022-03-15 19:17] LABS: Basophils # (Auto) 0.1 K/mm3 (0.0-0.1); Basophils % (Auto) 1.2 % (0.0-1.8); Eosinophils % (Auto) 0.5 % (0.0-4.3); Hematocrit 44.7 % (30.3-42.9); Lymphocytes # (Auto) 1.9 K/mm3 (1.2-5.4); Lymphocytes % (Auto) 28.3 % (13.4-35.0); Mean Corpuscular HGB Conc 34 % (30-34); Mean Corpuscular Volume 82 fl (79-97); Monocytes # (Auto) 0.4 K/mm3 (0.0-0.8); Monocytes % (Auto) 5.5 % (0.0-7.3); Platelet Count 242 K/mm3 (140-440); Red Blood Count 5.46 M/mm3 (3.65-5.03); Red Cell Distribution Width 14.4 % (13.2-15.2)
[2022-03-15 19:29] LABS: BUN/Creatinine Ratio 9; Blood Urea Nitrogen 9 mg/dL (7-17); Hemolysis Index 19
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
[2022-03-16 01:37] LABS: Amphetamine Screen,Urine PRESUMPTIVE NEGATIVE; Benzodiazepines Screen,Urine PRESUMPTIVE NEGATIVE; Cannabinoid Screen,Urine PRESUMPTIVE NEGATIVE; Cocaine Screen,Urine PRESUMPTIVE POSITIVE; Methadone Screen,Urine PRESUMPTIVE NEGATIVE; Opiate Screen,Urine PRESUMPTIVE NEGATIVE
[2022-03-16 02:18] LABS: Bacteria,Urine 1+ /HPF (Negative); Hyaline Casts,Urine 1 /LPF; Mucus,Urine FEW /HPF
[2022-03-16 02:27] LABS: Color,Urine Yellow (Yellow)
[2022-03-16 08:51] VITALS: BP 137/79
--- NOTE | 2022-03-16 10:11 | Consultation ---
History of Present Illness - Reason for Consult Consult date: 03/16/22 Reason for consult: mental health evaluation - History of Present Psychiatric Illness The patient is a 61 year old female with history of Bipolar, Anxiety, and Insomnia who presents to the ED with suicidal ideation. Patient seen today. She is calm, and cooperative. She reports that she got into an argument with her daughter yesterday. She reports that gets her meds from [facility]. She reports no current suicidal/homicidal ideation and denies hallucinations. PAST PSYCHIATRIC HISTORY: Diagnoses: Bipolar, Anxiety, Insomnia Suicide attempts or Self-harm behavior: Yes Prior psychiatric hospitalizations: Yes Substance Abuse history: Crack cocaine Previous psychiatric medications tried: Unable to recall Outpatient treatment: Yes- [facility] PAST MEDICAL HISTORY: Family Psychiatric History: None reported SOCIAL HISTORY Marital Status: Living Arrangements: lives in a boarding house Employment Status: Unemployed Access to guns/weapons: Denies Education: 9th grade History of Abuse: Denies Legal History: Unknown REVIEW OF SYSTEMS Constitutional: Negative for weight loss ENT: Negative for stridor Respiratory: Negative for cough or hemoptysis All other systems reviewed and are negative MENTAL STATUS General Appearance and Behavior: age appropriate, good eye contact, cooperative, Cooperation: Cooperative Psychomotor Behavior: within normal limits Mood: depressed Affect and affective range: Congruent with stated mood Thought Process: goal directed Thought Content: Reality oriented Speech: Normal volume and Regular rate and rhythm Suicidal Ideation: Denies Homicidal Ideation: Denies HI Hallucinations: Denies Impulse Control: intact Insight and Judgment: Limited Memory: Limited Attention: Distracted Orientation: alert and oriented x4 Assessment Bipolar disorder Treatment Plan Continue home medications The patient is to get first dose of meds prior to leaving. Benefits and possible SE were explained to patient. She verbalizes understanding. Risks, benefits and alternatives of medications discussed with the patient, ques tions answered and consent obtained from patient. PSYCHOTHERAPY: Supportive psychotherapy provided MEDICAL: Per primary team DELIRIUM PRECAUTIONS: Please re-orient patient frequently, keep lights on during the day, and minimize benzodiazepines and opiates as these medications could worsen patient's confusion. BAR STEWARD: Defer to primary DISPOSITION: Do not Recommend acute inpatient psychiatric hospitalization at this time. [facility] will provide patient with psychiatric outpatient resources. FOLLOW-UP: Will sign off. Thank you for the consult. Please contact with any questions and/or concerns Case discussed with Dr. Vences who agrees with current disposition Medications and Allergies Allergies Allergy/AdvReac Type Severity Reaction Status Date / Time acetaminophen Allergy Intermediate Unknown Verified 03/15/22 15:35 codeine Allergy Intermediate Itching Verified 03/15/22 15:35 Home Medications Medication Instructions Recorded Confirmed Last Taken Type AtorvaSTATin 20 mg PO DAILY 03/28/18 05/02/20 Unknown History Carbamazepine 200 mg PO DAILY 03/28/18 05/02/20 03/29/18 History Hydroxyzine HCl 50 mg PO TID 03/28/18 05/02/20 03/29/18 History Levothyroxine 50 mcg PO DAILY 03/28/18 05/02/20 Unknown History PROzac 40 mg PO DAILY 03/30/18 05/02/20 03/29/18 History Ibuprofen [Motrin 600 MG tab] 600 mg PO Q8H PRN #20 tablet 05/12/18 05/02/20 Unknown Rx Gabapentin 300 mg PO Q8HR #90 capsule 05/05/20 Unknown Rx [place]-3 Fatty Acids/Fish Oil [Fish 2,000 mg PO BID #120 capsule 05/05/20 Unknown Rx Oil] Pantoprazole [Protonix TAB] 20 mg PO QDAC #30 tablet. 05/05/20 Unknown Rx QUEtiapine [SEROquel] 200 mg PO QHS #30 tablet 05/05/20 Unknown Rx Mental Status Exam - Vital signs Last Vital Signs Temp 98.6 F 03/16/22 08:49 Pulse 64 03/16/22 08:49 Resp 20 03/16/22 08:49 BP 137/79 03/16/22 08:49 Pulse Ox 100 03/16/22 08:49 Results Result Diagrams: 03/15/22 18:27 03/15/22 18:27 Abnormal lab results 03/15/22 03/15/22 03/15/22 Range/Units 18:27 18:27 18:27 RBC 5.46 H (3.65-5.03) M/mm3 Hgb 15.0 H (10.1-14.3) gm/dl Hct 44.7 H (30.3-42.9) % Salicylates < 0.3 L (2.8-20.0) mg/dL Acetaminophen 5.0 L (10.0-30.0) ug/mL All other labs normal.
--- NOTE | 2022-03-16 16:20 | Event Note ---
Date: 03/16/22 The patient was evaluated in the emergency department for symptoms described in the history of present illness. He/she was evaluated in the context of the global COVID-19 pandemic, which necessitated consideration that the patient might be at risk for infection with the virus that causes COVID-19. Institutional protocols and algorithms that pertain to the evaluation of patients at risk for COVID-19 are in a state of rapid change based on information released by regulatory bodies including the CDC and federal and state organizations. These policies and algorithms were followed during the patient's care in the emergency department. Please note that these policies, procedures and recommendations changed on a rapid basis. Laboratory studies, vital signs, nursing documentation, ER documentation, and psychiatric documentation are reviewed and appreciated. Nursing team reports no acute events this morning or concerns. The patient is awake and ambulating and does not appear to be in any acute distress. The patient was deemed medically suitable for psychiatric disposition and placement during her initial ER evaluation. The patient continues to remain medically suitable for psychiatric placement and disposition. The psychiatric team have recommended that this patient does not meet criteria for 1013 hold or involuntary confinement. Patient is documented as being awake, alert, oriented, sober, of sound mind and exhibiting decision-making capacity. The patient may not want to go back to her current facility, so she can be discharged to a homeless nursing home, with a list of homeless nursing home resources, or, her family can come by and pick her up. Vital Signs 03/15/22 03/15/22 03/15/22 15:31 16:54 21:45 Temperature 98.9 F Pulse Rate 76 66 Respiratory 16 20 18 Rate Blood Pressure 148/119 134/87 [Left] O2 Sat by Pulse 99 98 98 Oximetry 03/16/22 08:49 Temperature 98.6 F Pulse Rate 64 Respiratory 20 Rate Blood Pressure 137/79 [Left] O2 Sat by Pulse 100 Oximetry Lab Results 03/15/22 03/15/22 03/15/22 Range/Units 18:27 18:27 18:27 WBC 6.8 (4.5-11.0) K/mm3 RBC 5.46 H (3.65-5.03) M/mm3 Hgb 15.0 H (10.1-14.3) gm/dl Hct 44.7 H (30.3-42.9) % MCV 82 (79-97) fl MCH 28 (28-32) pg MCHC 34 (30-34) % RDW 14.4 (13.2-15.2) % Plt Count 242 (140-440) K/mm3 Lymph % (Auto) 28.3 (13.4-35.0) % [place] % (Auto) 5.5 (0.0-7.3) % Eos % (Auto) 0.5 (0.0-4.3) % Baso % (Auto) 1.2 (0.0-1.8) % Lymph # (Auto) 1.9 (1.2-5.4) K/mm3 [place] # (Auto) 0.4 (0.0-0.8) K/mm3 Eos # (Auto) 0.0 (0.0-0.4) K/mm3 Baso # (Auto) 0.1 (0.0-0.1) K/mm3 Seg Neutrophils % 64.5 (40.0-70.0) % Seg Neutrophils # 4.4 (1.8-7.7) K/mm3 Sodium 144 (137-145) mmol/L Potassium 4.1 (3.6-5.0) mmol/L Chloride 103.9 (98-107) mmol/L Carbon Dioxide 29 (22-30) mmol/L Anion Gap 15 mmol/L BUN 9 (7-17) mg/dL Creatinine 1.0 (0.6-1.2) mg/dL Estimated GFR > 60 ml/min BUN/Creatinine Ratio 9 % Glucose 90 (65-100) mg/dL Calcium 10.0 (8.4-10.2) mg/dL Urine Color (Yellow) Urine Turbidity (Clear) Specific [place] (Man) (1.003-1.030) Ur Protein (Man) (Negative) mg/dL Ur Ketones (Man) (Negative) Ur Nitrite (Man) (Negative) Ur Reducing Substances Urine Ictotest Leukocyte Esterase (Man) (Negative) Urine WBC (Auto) (0.0-6.0) /HPF Urine RBC (Auto) (0.0-6.0) /HPF U Epithel Cells (Auto) (0-13.0) /HPF Urine Bacteria (Auto) (Negative) /HPF Urine RBC (Manual) (Negative) Hyaline Casts /LPF Urine Mucus /HPF Salicylates < 0.3 L (2.8-20.0) mg/dL Urine Opiates Screen Urine Methadone Screen Acetaminophen (10.0-30.0) ug/mL Ur Barbiturates Screen Ur Phencyclidine Scrn Ur Amphetamines Screen U Benzodiazepines Scrn Urine Cocaine Screen U Marijuana (THC) Screen Drugs of Abuse Note SARS-CoV-2 (PCR) (Negative) 03/15/22 03/16/22 03/16/22 Range/Units 18:27 01:21 01:21 WBC (4.5-11.0) K/mm3 RBC (3.65-5.03) M/mm3 Hgb (10.1-14.3) gm/dl Hct (30.3-42.9) % MCV (79-97) fl MCH (28-32) pg MCHC (30-34) % RDW (13.2-15.2) % Plt Count (140-440) K/mm3 Lymph % (Auto) (13.4-35.0) % [place] % (Auto) (0.0-7.3) % Eos % (Auto) (0.0-4.3) % Baso % (Auto) (0.0-1.8) % Lymph # (Auto) (1.2-5.4) K/mm3 [place] # (Auto) (0.0-0.8) K/mm3 Eos # (Auto) (0.0-0.4) K/mm3 Baso # (Auto) (0.0-0.1) K/mm3 Seg Neutrophils % (40.0-70.0) % Seg Neutrophils # (1.8-7.7) K/mm3 Sodium (137-145) mmol/L Potassium (3.6-5.0) mmol/L Chloride (98-107) mmol/L Carbon Dioxide (22-30) mmol/L Anion Gap mmol/L BUN (7-17) mg/dL Creatinine (0.6-1.2) mg/dL Estimated GFR ml/min BUN/Creatinine Ratio % Glucose (65-100) mg/dL Calcium (8.4-10.2) mg/dL Urine Color Yellow (Yellow) Urine Turbidity Clear (Clear) Specific [place] (Man) 1.020 (1.003-1.030) Ur Protein (Man) 1+ (Negative) mg/dL Ur Ketones (Man) Negative (Negative) Ur Nitrite (Man) Negative (Negative) Ur Reducing Substances Not Reportable Urine Ictotest Not Reportable Leukocyte Esterase (Man) Negative (Negative) Urine WBC (Auto) 3.0 (0.0-6.0) /HPF Urine RBC (Auto) 1.0 (0.0-6.0) /HPF U Epithel Cells (Auto) 3.0 (0-13.0) /HPF Urine Bacteria (Auto) 1+ (Negative) /HPF Urine RBC (Manual) Negative (Negative) Hyaline Casts 1 /LPF Urine Mucus Few /HPF Salicylates (2.8-20.0) mg/dL Urine Opiates Screen Presumptive negative Urine Methadone Screen Presumptive negative Acetaminophen 5.0 L (10.0-30.0) ug/mL Ur Barbiturates Screen Presumptive negative Ur Phencyclidine Scrn Presumptive negative Ur Amphetamines Screen Presumptive negative U Benzodiazepines Scrn Presumptive negative Urine Cocaine Screen Presumptive positive U Marijuana (THC) Screen Presumptive negative Drugs of Abuse Note Disclamer SARS-CoV-2 (PCR) (Negative) 03/16/22 Range/Units 09:58 WBC (4.5-11.0) K/mm3 RBC (3.65-5.03) M/mm3 Hgb (10.1-14.3) gm/dl Hct (30.3-42.9) % MCV (79-97) fl MCH (28-32) pg MCHC (30-34) % RDW (13.2-15.2) % Plt Count (140-440) K/mm3 Lymph % (Auto) (13.4-35.0) % [place] % (Auto) (0.0-7.3) % Eos % (Auto) (0.0-4.3) % Baso % (Auto) (0.0-1.8) % Lymph # (Auto) (1.2-5.4) K/mm3 [place] # (Auto) (0.0-0.8) K/mm3 Eos # (Auto) (0.0-0.4) K/mm3 Baso # (Auto) (0.0-0.1) K/mm3 Seg Neutrophils % (40.0-70.0) % Seg Neutrophils # (1.8-7.7) K/mm3 Sodium (137-145) mmol/L Potassium (3.6-5.0) mmol/L Chloride (98-107) mmol/L Carbon Dioxide (22-30) mmol/L Anion Gap mmol/L BUN (7-17) mg/dL Creatinine (0.6-1.2) mg/dL Estimated GFR ml/min BUN/Creatinine Ratio % Glucose (65-100) mg/dL Calcium (8.4-10.2) mg/dL Urine Color (Yellow) Urine Turbidity (Clear) Specific [place] (Man) (1.003-1.030) Ur Protein (Man) (Negative) mg/dL Ur Ketones (Man) (Negative) Ur Nitrite (Man) (Negative) Ur Reducing Substances Urine Ictotest Leukocyte Esterase (Man) (Negative) Urine WBC (Auto) (0.0-6.0) /HPF Urine RBC (Auto) (0.0-6.0) /HPF U Epithel Cells (Auto) (0-13.0) /HPF Urine Bacteria (Auto) (Negative) /HPF Urine RBC (Manual) (Negative) Hyaline Casts /LPF Urine Mucus /HPF Salicylates (2.8-20.0) mg/dL Urine Opiates Screen Urine Methadone Screen Acetaminophen (10.0-30.0) ug/mL Ur Barbiturates Screen Ur Phencyclidine Scrn Ur Amphetamines Screen U Benzodiazepines Scrn Urine Cocaine Screen U Marijuana (THC) Screen Drugs of Abuse Note SARS-CoV-2 (PCR) Negative (Negative)
== END 2022-03-16 18:54 | disposition home or self-care (01) ==
LOC: ED 15:22
DX: R45.851 Suicidal ideations (principal); Z20.822 Contact with and (suspected) exposure to COVID-19; F31.9 Bipolar disorder, unspecified; F14.90 Cocaine use, unspecified, uncomplicated; Z88.6 Allergy status to analgesic agent; Z88.8 Allergy status to other drugs, medicaments and biological substances
CPT/HCPCS: 36415; 80048; 80307; 81001; 85025; 99284; U0003; 80320; G0480